=== PATIENT | female | born 1980 | race Caucasian/White ===

== ENCOUNTER 2022-09-04 06:50 | Observation (INO) | payer OTHER ==
[2022-09-03 08:35] LABS: Absolute Lymphocytes (CBC) 1.7 K/uL (0.7-4.9); Hematocrit 40.7 % (36.0-45.0); Lymphocytes % 18.9 % (15.3-44.8); MCV 81.7 fL (80-100); MPV 7.9 fL (7.6-11.3); RBC Red Blood Cell Count 4.98 M/uL (3.86-4.86)
[2022-09-03 08:40] LABS: Potassium 3.4 mEq/L (3.5-5.1)
--- NOTE | 2022-09-03 12:45 | RAD REPORT ---
EXAM DESCRIPTION: Mary Lout Pa And Lat (2 Views)09/03/2022 8:18 am CLINICAL HISTORY: pre op for surgery. Hypertension COMPARISON: No comparisons TECHNIQUE: PA and lateral views of the chest. FINDINGS: The lungs are clear. No pneumothorax or effusion. The cardiomediastinal contours are unre markable. IMPRESSION: No acute cardiopulmonary process.
[2022-09-04] MEDS ORDERED: Ringers Lactate 1,000 ML IV ONE (07:05)
[2022-09-04] MEDS ORDERED: CEFAZOLIN SODIUM 1 GM/VIAL ONE (07:05)
--- NOTE | 2022-09-04 07:09 | EKG ---
Test Date: 2022-09-03 Test Time: 08:04:27 Humanities Department Chair: AMY MEASUREMENT RESULTS: Intervals: Rate: 72 NM: 160 QRSD: 76 QT: 370 QTc: 405 [place]: P: -8 NM: 160 QRS: -6 T: 21 INTERPRETIVE STATEMENTS: Normal sinus rhythm Normal ECG No previous ECG available for comparison Electronically Signed On 09-04-22 07:06:43 CDT by Phu Lester
[2022-09-04] MEDS ORDERED: MIDAZOLAM HCL 2 MG/2 ML INJ ONE (07:10)
[2022-09-04] MEDS ORDERED: propofoL 200 MG/20 ML VIAL IV ONE (07:10)
[2022-09-04] MEDS ORDERED: FENTANYL CITR 100 MCG/2 ML ONE ×2 (07:10→09:39)
[2022-09-04] MEDS ORDERED: KETOROLAC 30 MG/ML INJ ONE (07:10)
[2022-09-04] MEDS ORDERED: ROCURONIUM 50 MG/5 ML VIAL IV ONE ×2 (07:10→10:10)
[2022-09-04] MEDS ORDERED: ONDANSETRON 4 MG/2 ML VIAL ONE (07:11)
[2022-09-04] MEDS ORDERED: LIDOCAINE 2% MPF 5 ML VIAL ONE (07:11)
[2022-09-04] MEDS ORDERED: dexAMETHasone 10 MG/ML VIAL ONE (09:26)
[2022-09-04] MEDS ORDERED: SODIUM CHLORIDE 0.9% 10ML INJ IV PRN (10:58)
[2022-09-04] MEDS ORDERED: ONDANSETRON 4 MG/2 ML VIAL IV PRN (10:58)
--- NOTE | 2022-09-04 11:09 | P.BOP ---
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
[2022-09-04] MEDS: HYDROMORPHONE HCL 1 MG/ML INJ ONE ×3 (11:28→11:43)
[2022-09-04] MEDS ORDERED: HYDROMORPHONE HCL 1 MG/ML INJ ONE (11:34)
[2022-09-04 12:35] VITALS: O2SAT 98
[2022-09-04] MEDS: NA CHLORIDE 0.9% 1,000 ML IV SCH (12:49)
[2022-09-04] MEDS: METRONIDAZOLE 500mg IVPB 500 MG/100 ML BAG IV SCH ×2 (12:51→18:09)
[2022-09-04 14:25] VITALS: BMI 35.6
[2022-09-04] MEDS: HYDROMORPHONE HCL 1 MG/ML INJ IV PRN ×2 (16:00→20:59)
[2022-09-04] MEDS: Ciprofloxacin 200mg IV 200 MG/100 ML IV.SOLN. IV SCH (20:59)
[2022-09-05] MEDS: METRONIDAZOLE 500mg IVPB 500 MG/100 ML BAG IV SCH (00:56)
[2022-09-05] MEDS: NA CHLORIDE 0.9% 1,000 ML IV SCH ×2 (02:08→07:00)
[2022-09-05] MEDS: HYDROMORPHONE HCL 1 MG/ML INJ IV PRN ×2 (02:08→07:21)
[2022-09-05 05:26] LABS: Absolute Lymphocytes (CBC) 1.4 K/uL (0.7-4.9); Hematocrit 36.9 % (36.0-45.0); Lymphocytes % 9.4 % (15.3-44.8); MCV 82.3 fL (80-100); MPV 7.8 fL (7.6-11.3); RBC Red Blood Cell Count 4.49 M/uL (3.86-4.86)
[2022-09-05 05:46] LABS: Potassium 3.2 mEq/L (3.5-5.1)
[2022-09-05 06:02] LABS: Blood Morphology Comment NOT SEEN (NOT SEEN); Platelet Estimate ADEQ; White Blood Cell Scan OK (OK)
[2022-09-05] MEDS: Ciprofloxacin 200mg IV 200 MG/100 ML IV.SOLN. IV SCH (08:04)
[2022-09-05] MEDS ORDERED: PANTOPRAZOLE 40 MG INJ IVP SCH (09:00)
--- NOTE | 2022-09-05 09:34 | OP ---
Date of Procedure: 09/05/2022 Surgeon: José Antonio Hong MD Preoperative Diagnosis: Large incarcerated ventral hernia. Postoperative Diagnosis: Large incarcerated ventral hernia plus extensive intra-abdominal adhesions. Procedure: Laparoscopic repair of large incarcerated ventral hernia with mesh and laparoscopic lysis of adhesions. Estimated Blood Loss: Less than 50 cc. Specimen: Large sac and large amount of omentum. Findings: Large incarcerated and non-reducible omentum, needs excision. Anesthesia: General plus local. Implant: Ventralight mesh with Echo Positioning System. Indication: This is the case of a female, who comes to us with a very large hernia in the lower abdo men. The patient wants that repaired as it is giving pain and discomfort. The benefits, alternative s, and risks of laparoscopic, possible open repair of ventral hernia with mesh fully explained, which include, but not limited to infection, bleeding, damage to adjacent structures, anesthesia complicat ion, recurrence, OH, and even . She also understands this may not relieve any symptoms. She mi ght need more than one surgical intervention. She understood, signed a consent. The pros and cons o f mesh placement were discussed with the patient. All the questions were answered to her satisfactio n. She agreed with mesh placement if needed. Procedure In Detail: The patient was brought to the operating room, placed in supine position. Anes thesia was done without complication. Abdominal area was prepped and draped in the usual sterile fas hion. Marcaine 0.5% was injected for area to be incised. First incision was made in the epigastric region, we want to put the camera in that region and see what is going in the lower abdomen since we suspect the patient may some adhesions with a large amount of omentum trapped into that area that can not be reduced. So, we made an incision. The incision was carried down to fascia, which was opened under direct vision. Peritoneum was encountered, opened under direct vision. Vicryl #1 placed insid e the fascia. Lexx trocar was carefully introduced. Pneumoperitoneum was obtained. We noticed a lot of adhesions going through that hernia, the omentum cannot be reduced, so we used Endo Lamar and spent probably half of the time of this case just doing lysis of adhesions since I able to get the r ing of the hernia sac visualized enough and still with that, we cannot reduce that omentum due to the large amount of incarceration. So, we made a counter incision in the ventral region. The incision was carried down to the hernia sac. Hernia sac was removed and unfortunately that omentum is too tra pped to a nonviable, so I proceeded then to ligate the omentum with the help of LigaSure. The rest o f the omentum was sent back on the abdominal cavity after fully inspecting to make sure there was no bleeding and the rest of the omentum was sent as specimen with the hernia sac. The fascial edges wer e clean. Then, after that, we proceeded to close the edges with a #1 PDS in a [id number] fashio n multiple times. Before that, we noted that fascia will require some reinforcement since it is very thinned out, so we already have 5 mm trocars inside of the abdomen, but we just went through deep it self, struck the Ventralight ST with Echo Positioning System. We tied all the stitches except 1 just enough to obtain good pneumoperitoneum. After that, we then obtained pneumoperitoneum once again an d took a look at the area inside. First, we inspected lysis of adhesions, no bleeding. Then, after that, we insufflated the balloon and the mesh and made sure the mesh overlapped the area about 3-5 cm and it is nice and flat against the peritoneum. We secured that with SorbaFix. We noticed that Sor baFix was not fixing this mesh properly, so we switched to CapSure that gave us a better grasp of the surrounding tissues. The balloon was deflated and removed under direct visualization. Then, the fu rther fixation 360 degrees was done around the mesh itself and in the center to make sure there were no intestines that can get in between. No bleeding. The area of the lysis of adhesions shows no ble eding. At that moment, I proceeded to remove the trocars under direct vision. Deflated pneumoperito neum. Closed the fascia with #1 Vicryl. Irrigated subcutaneous tissue, closed that with 3-0 chromic and the skin with dylan. Sponge count, instrument counts correct. The patient tolerated the proc edure well. The patient sent to recovery in stable condition. We expect this patient to have an ile us. We expect this patient to have pain more than just p.o. medication, so we suggested the patient to stay with us overnight for pain control and slowly increase the diet. We will send the patient ho me when she is tolerating diet and medication by mouth is adequate. LOUIE/PEDRO Voice ID: [id number] Report ID: [id number]
--- NOTE | 2022-09-05 13:12 | P.DS ---
Admission Date: 09/04/22 Discharge Date: 09/05/22 Disposition: ROUTINE DISCHARGE Discharge Condition: GOOD Vital Signs/Physical Exam: Temp Pulse Resp BP Pulse Ox 97.7 F 87 16 109/56 L 92 09/05/22 08:00 09/05/22 08:00 09/05/22 08:00 09/05/22 08:00 09/05/22 08:00 HEENT: PERRLA Neck: Supple Respiratory: Clear to auscultation bilaterally Cardiovascular: No edema, Normal pulses Gastrointestinal: Soft and benign Musculoskeletal: No erythema, No tenderness, No warmth Integumentary: No rashes, No breakdown, No erythema, No warmth, No cyanosis Neurological: Normal speech Laboratory Data at Discharge: WBC 14.60 thou/uL (4.3-10.9) H 09/05/22 04:50 Hgb 12.4 g/dL (12.0-15.0) 09/05/22 04:50 Hct 36.9 % (36.0-45.0) 09/05/22 04:50 Plt Count 366 thou/uL (152-406) 09/05/22 04:50 Sodium 139 mEq/L (136-145) 09/05/22 04:50 Potassium 3.2 mEq/L (3.5-5.1) L 09/05/22 04:50 BUN 8 mg/dL (7-18) 09/05/22 04:50 Creatinine 0.64 mg/dL (0.55-1.02) 09/05/22 04:50 Glucose 120 mg/dL (74-106) H 09/05/22 04:50 Home Medications: Cholecalciferol (Vitamin D3) [Vitamin D 1000 Iu Tab] 1,000 unit PO DAILY 09/03/22 Olmesartan/Amlodipin/Hcthiazid [Uwqukyt-Ovzklx-Jbvk 40-10-25Mg] 1 each PO DAILY 09/03/22 Potassium Bicarbonate/Cit AC [Effer-K 20 Meq Tablet Eff] 20 meq PO DAILY 09/03/22 Tumeric/Ging/[place]/Oreg/Capryl [Candicidal Capsule] 1 each PO DAILY 09/03/22 Physician Discharge Instructions: abdominal binder May remove outer dressing tomorrow and clean incision with soap and water. Activity: No lifting more than 10 lbs Followup: NONE,NONE [Primary Care Provider] - 1 Week José Antonio Hong MD [ACTIVE - CAN ADMIT] - 1 Week
[2022-09-05 14:12] VITALS: BP 124/60; TEMP 98.4
== END 2022-09-05 14:13 | disposition home or self-care (01) ==
LOC: OR 06:50 → 4TH 11:57
PROVIDERS: ADMIT Surgery; ATTEND Surgery
PROC: 0WUF4JZ Supplement Abdominal Wall with Synthetic Substitute, Percutaneous Endoscopic Approach (ICD-10-PCS; principal; 2022-09-04 08:45)
DX: K43.6 Other and unspecified ventral hernia with obstruction, without gangrene (principal); K66.0 Peritoneal adhesions (postprocedural) (postinfection); I10 Essential (primary) hypertension; E66.9 Obesity, unspecified
CPT/HCPCS: 93005; 85025 ×2; 80048 ×2; 36415 ×2; 88302; 71046; 94010; 49596; J2704; J2001; C9113; J2250; J3010 ×2; J1100; J0744 ×2; J1170 ×6; J2405; J7120; J7030 ×2; J0690; C1781; G0378 ×3